=== PATIENT | male | born 1975 | race Hispanic/Latino ===

== ENCOUNTER 2019-04-05 12:34 | Emergency (ER) | payer OTHER ==
[~2019-04-05] VITALS: Ht 180.3 cm; Wt 98.4 kg
[2019-04-05 12:59] VITALS: BP 161/109
[2019-04-05] MEDS ORDERED: ZOFRAN ODT SL STA (13:02)
[2019-04-05] MEDS ORDERED: ATIVAN PO STA (13:02)
[2019-04-05 13:29] LABS: BASOPHIL % 0.4 % (0.0-0.2); EOSINOPHIL # 0.1 10^3/uL (0.0-0.2); HEMOGLOBIN 14.2 g/dL (13.9-16.3); LYMPHOCYTES % 18.3 % (24.0-44.0); MEAN CELL HGB 28.9 pg (26-34); MEAN CELL HGB CONCENTRATION 34.4 g/dL (33-37); MEAN CORP VOLUME 84.1 fL (78-100); MEAN PLATELET VOLUME 10.3 fL (7.8-11.0); MONOCYTES # 1.2 10^3/uL (0.3-0.8); MONOCYTES % 10.3 % (5.0-12.0); NEUTROPHIL # 7.8 10^3/uL (1.8-7.7); PLATELET COUNT 241 10^3/uL (150-400); RED CELL DISTRIBUTION WIDTH 14.3 % (11.5-14.5); WHITE BLOOD CELL 11.2 10^3/uL (4.5-11.0)
[2019-04-05 13:44] LABS: CALCIUM 9.1 mg/dL (8.4-10.5); CARBON DIOXIDE 25.6 mmol/L (20.0-32)
[2019-04-05] MEDS ORDERED: ATIVAN ONE (13:53)
[2019-04-05] MEDS ORDERED: ZOFRAN ODT ONE (13:53)
[2019-04-05 14:43] VITALS: BP 145/84
--- NOTE | 2019-04-05 14:46 | ER.PDOC ---
General Chief Complaint: Nausea,Vomiting,Diarrhea Stated Complaint: N/V,SOB Time seen by MD: 14:33 Source: patient Exam Limitations: no limitations History of Present Illness Context: out of country/travel Severity/Quality: mild, moderate Abdominal Pain Onset Location: Generalized Abdomen Associated Symptoms (vomiting): mild vomiting Associated Symptoms (diarrhea): blood-streaked Allergies: Coded Allergies: No Known Allergies (Unverified , 04/05/19) Vital Signs First Vital Signs Date Time Temp Pulse Resp B/P (MAP) Pulse Ox O2 Delivery O2 Flow Rate FiO2 04/05/19 12:45 98.8 81 17 97 Room Air 04/05/19 12:59 161/109 (126) Last Vital Signs Date Time Temp Pulse Resp B/P (MAP) Pulse Ox O2 Delivery O2 Flow Rate FiO2 04/05/19 12:59 98.8 81 17 161/109 (126) 97 Room Air Past Medical History Medical History: diabetes, high cholesterol, hypertension Surgical History: no surgical history Social History Smoking: non-smoker Alcohol Use: none Drug Use: none Reviewed Nursing Reviewed: Vital Signs, Abn. Noted All Other Systems: Reviewed and Negative Physical Exam General Appearance: Anxious HEENT: PERRL/EOMI, Normal ENT Inspection, TMs Normal, Pharynx Normal Neck: Non-Tender, Full Range of Motion, Supple, Normal Inspection Respiratory: chest non-tender, lungs clear, normal breath sounds, no respiratory distress, no accessory muscle use Cardiovascular: Normal Peripheral Pulses, Regular Rate, Rhythm, No Edema, No Gallop, No JVD, No Murmur Gastrointestinal: Normal Bowel Sounds, Non Tender, Soft Back: Normal Inspection, No CVA Tenderness, No Vertebral Tenderness Extremities: Normal Range of Motion, Non-Tender, Normal Inspection, No Pedal Edema, No Calf Tenderness, Normal Capillary Refill, Pelvis Stable Neurologic/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: 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 NML as Tested, No Motor/Sensory Deficits, Alert, Normal Mood/Affect, Oriented x 3 Skin: Normal Color, Warm/Dry Lymphatic: No Adenopathy Results/Orders Results/Orders Orders - FELICE AMBROSE MD Cbc With Auto Diff (04/05/19 13:01) Comprehensive Metabolic Panel (04/05/19 13:01) Amylase (04/05/19 13:01) Lipase (04/05/19 13:01) Urinalysis (04/05/19 13:01) Clostridium Difficile Panel (04/05/19 13:01) Lactoferrin Fecal Qual(Ml) (04/05/19 13:01) Stool Culture(Ml) (04/05/19 13:01) Lorazepam (Ativan) (04/05/19 13:02) Ondansetron (Zofran Odt) (04/05/19 13:02) Ondansetron (Zofran Odt) (04/05/19 13:53) Lorazepam (Ativan) (04/05/19 13:53) Vital Signs Date Time Temp Pulse Resp B/P (MAP) Pulse Ox O2 Delivery O2 Flow Rate FiO2 04/05/19 12:59 98.8 81 17 161/109 (126) 97 Room Air 04/05/19 12:45 98.8 81 17 04/05/19 12:45 98.8 81 17 97 Room Air Administered Medications Medications (Trade) Dose Ordered Sig/Kathe Route PRN Reason Start Time Stop Time Status Last Admin Dose Admin Lorazepam (Ativan) 2 mg STAT STAT PO 04/05/19 13:02 04/05/19 13:04 DC 04/05/19 14:00 2 MG Laboratory Tests Test 04/05/19 13:20 White Blood Count 11.2 10^3/uL (4.5-11.0) H Red Blood Count 4.91 10^6/uL (4.50-5.90) Hemoglobin 14.2 g/dL (13.9-16.3) Hematocrit 41.3 % (37.0-53.0) Mean Corpuscular Volume 84.1 fL (78-100) Mean Corpuscular Hemoglobin 28.9 pg (26-34) Mean Corpuscular Hemoglobin Concent 34.4 g/dL (33-37) Red Cell Distribution Width 14.3 % (11.5-14.5) Platelet Count 241 10^3/uL (150-400) Mean Platelet Volume 10.3 fL (7.8-11.0) Neutrophils (%) (Auto) 70.0 % (41.0-85.0) Lymphocytes (%) (Auto) 18.3 % (24.0-44.0) L Monocytes (%) (Auto) 10.3 % (5.0-12.0) Neutrophils # (Auto) 7.8 10^3/uL (1.8-7.7) H Lymphocytes # (Auto) 2.0 10^3/uL (1.0-4.8) Monocytes # (Auto) 1.2 10^3/uL (0.3-0.8) H Eosinophils % 1.0 % (0.0-5.0) Basophils % 0.4 % (0.0-0.2) H Basophils # 0.0 10^3/uL (0.0-0.1) Eosinophil Count 0.1 10^3/uL (0.0-0.2) Sodium Level 142 mmol/L (132-145) Potassium Level 3.6 mmol/L (3.6-5.2) Chloride Level 104.0 mmol/L (96-109) Carbon Dioxide Level 25.6 mmol/L (20.0-32) Anion Gap 16.0 Blood Urea Nitrogen 12 mg/dL (7-18) Creatinine 0.81 mg/dL (0.59-1.40) Estimated GFR () 125.3 (>/=60) BUN/Creatinine Ratio 14.0 Glucose Level 112 mg/dL (70-110) H Calcium Level 9.1 mg/dL (8.4-10.5) Total Bilirubin 0.6 mg/dL (0.2-1.0) Aspartate Amino Transferase (AST) 32 U/L (0-35) Alanine Aminotransferase (ALT) 88 U/L (12-78) H Alkaline Phosphatase 113 U/L (50-136) Total Protein 8.3 g/dL (6.4-8.2) H Albumin 3.8 g/dL (3.4-5.0) Globulin 4.5 Amylase Level 44 U/L (25-115) Lipase 109 U/L (114-286) L Departure Time of Disposition: 15:22 Disposition: 01 HOME, SELF-CARE Impression: Primary Impression: Gastroenteritis Additional Impression: Anxiety Condition: Improved Referrals: PCP,UNKNOWN (PCP) PRIMARY CARE PROVIDER Duration or Time Spent with Pa: 30 MIN Problem Qualifiers FELICE AMBROSE MD Apr 05, 2019 14:45
[2019-04-05 15:28] VITALS: BP 145/84
== END 2019-04-05 15:19 | disposition home or self-care (01) ==
LOC: ER 12:34
DX: K52.9 Noninfective gastroenteritis and colitis, unspecified (principal); F41.9 Anxiety disorder, unspecified; E11.9 Type 2 diabetes mellitus without complications; E78.00 Pure hypercholesterolemia, unspecified; I10 Essential (primary) hypertension; Z79.899 Other long term (current) drug therapy
CPT/HCPCS: 36415; 80053; 82150; 83690; 85025; 99284; Q0162